=== PATIENT | female | born 1930 | race Caucasian/White ===

== ENCOUNTER 2017-05-13 04:59 | Emergency (ER) | payer MEDICARE ==
[2017-05-13 06:07] LABS: #Eosinphils 0.1 thou/uL (0.0-0.7); #Lymphocytes 0.8 thou/uL (1.20-3.40); #Monocytes 0.7 thou/uL (0.11-0.59); #Neutrophils 7.8 thou/uL (1.40-6.50); %Basophils 0.5 % (0.0-1.0); %Eosinophils 1.2 % (0.0-10.0); %Lymphocytes 8.3 % (21.0-51.0); %Monocytes 7.5 % (0.0-10.0); %Neutrophils 82.5 % (42.0-75.0); Mean Corpuscular HGB CONC 32.9 g/dL (32.0-36.0); Mean Corpuscular Hemoglobin 31.2 pg (27.0-31.0); Mean Corpuscular Volume 94.8 fl (81.0-99.0); Mean Platelet Volume 5.9 fL (7.4-10.4); Platelet Count 200 thou/uL (130-400); RBC Distribution Width 12.9 % (11.5-14.5); Red Blood Cell (RBC) Count 3.86 mill/uL (4.20-5.40); White Blood Cell (WBC) Count 9.4 thou/uL (4.8-10.8)
[2017-05-13 06:24] LABS: ALT (SGPT) 27 U/L (8-55); AST (SGOT) 34 U/L (5-34); Albumin 4.1 g/dL (3.4-4.8); Alkaline Phosphatase 73 U/L (40-150); Anion Gap 16 mmol/L (10-20); BUN (Urea Nitrogen) 30 mg/dL (9.8-20.1); Bilirubin, Total 0.8 mg/dL (0.2-1.2); Calc. Creatinine Clearance 0 mL/min (70-130); Calcium 8.6 mg/dL (7.8-10.44); Carbon Dioxide 28 mmol/L (23-31); Chloride 94 mmol/L (98-107); Estimated GFR-MDRD 67; Globulin 3.2 g/dL (2.4-3.5); Glucose 103 mg/dL (83-110); Lipase 80 U/L (8-78); Potassium 3.8 mmol/L (3.5-5.1); Protein, Total 7.3 g/dL (6.0-8.3); Sodium 134 mmol/L (136-145)
[2017-05-13 06:25] LABS: CKMB 3.5 ng/mL (0-6.6); Troponin I 0.012 ng/mL (< 0.028)
[2017-05-13 06:40] LABS: Bilirubin Negative (Negative); Blood, Urine Moderate (Negative); Clarity Clear (Clear); Glucose, Urine (Dipstick) Negative (Negative); Leukocyte Negative (Negative); Nitrite Negative (Negative); Protein, Urine (Dipstick) Negative (Neg-Trace); Urobilinogen 0.2 mg/dL (0.2-1.0)
[2017-05-13] MEDS ORDERED: Ibuprofen 200 MG TAB ONE (06:40)
[2017-05-13 06:42] LABS: Specific Gravity, Urine 1.011 (1.002-1.036)
[2017-05-13 06:44] LABS: Squamous Epithelial None Seen HPF (0-3); WBC/HPF 0-3 HPF (0-3)
[2017-05-13 06:45] LABS: Bacteria/HPF None Seen HPF (None Seen)
[2017-05-13 06:56] LABS: Alcohol Less than 10 mg/dL (Less than 10); Salicylate Less than 8.0 mg/dL (15.0-30.0)
--- NOTE | 2017-05-13 08:20 | CT ---
PRELIMINARY REPORT/[facility]/EMERGENCY AFTER HOURS PROCEDURE: EXAM: CT Abdomen and Pelvis Without Intravenous Contrast EXAM DATE/TIME: Exam ordered 05/13/2017 5:57 AM CLINICAL HISTORY: 86 years old, female; Pain; Abdominal pain; Acute; Patient HX: Rt. Sided pain TECHNIQUE: Axial computed tomography images of the abdomen and pelvis without intravenous contrast. COMPARISON: No relevant prior studies available. FINDINGS: Lower thorax: The visualized portions of the lung bases are normal. ABDOMEN: Liver: There are no focal liver lesions present. Gallbladder and bile ducts: A calcified gallstone is present. No ductal dilation. Pancreas: There is a nonspecific 3.8 cm cyst overlying the pancreatic head. The pancreas is otherwise atrophied. No ductal dilation. Spleen: The spleen is normal. Adrenals: Normal. No mass. 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 The course of the RIGHT ureter is not well-v isualized. Stomach and bowel: Normal. No obstruction. No mucosal thickening. Appendix: No findings to suggest acute appendicitis. PELVIS: Bladder: The urinary bladder is poorly visualized due to streak artifact. No stones. Reproductive: See above. ABDOMEN and PELVIS: Intraperitoneal space: Normal. No free air. No significant fluid collection. Bones/joints: Patient is post LEFT hip arthroplasty. Multilevel lumbar spine degenerative changes are present. No acute fracture. No dislocation. Soft tissues: Normal. Vasculature: The vasculature demonstrates diffuse severe atherosclerotic calcification. No abdominal aortic aneurysm. Lymph nodes: Normal. No enlarged lymph nodes. IMPRESSION: 1. 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 The course of the RIGHT ureter is not well-visualized. 2. There is a nonspecific 3.8 cm cyst overlying the pancreatic head. The pancreas is otherwise atroph ied. Followup or further evaluation for this finding at local radiologist's discretion. Thank you for allowing us to participate in the care of your patient. Dictated and Authenticated by: Domenico Dooley MD 05/13/2017 6:49 AM Central Time ([place] & [place]) FINAL REPORT ABDOMEN CT WITHOUT CONTRAST PELVIS CT WITHOUT CONTRAST: COMPARISON: 02/09/2014 HISTORY: Right-sided abdominal pain. TECHNIQUE: An abdomen and pelvis CT is performed without IV or oral contrast. Coronal reformatted images are cruz bmitted for interpretation. FINDINGS: This report is in agreement with the preliminary report by [facility]. Limited evaluation due to lack of IV contrast. There is right-sided obstructive uropathy. The etiol ogy of this obstructive uropathy is difficult to appreciate. IVP may be beneficial. 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 There is CT evidence of cholelithiasis without evidence of cholecystitis. There is a stable well circumscribed hypodensity, anterior to the aortic bifurcati on with an attenuation coefficient of -1.3 Hounsfield units. This lesion measures 3.3 cm and has not significantly changed in size. A cystic lesion is favored. POS: [facility]
== END 2017-05-13 07:27 | disposition home or self-care (01) ==
LOC: BURERS 04:59
DX: N13.2 Hydronephrosis with renal and ureteral calculous obstruction (principal); I48.91 Unspecified atrial fibrillation; Z79.899 Other long term (current) drug therapy
CPT/HCPCS: 74176; 80053; 80307; 81003; 81015; 82553; 83690; 84484; 85025; 93005

== ENCOUNTER 2018-06-19 12:49 | Outpatient (CLI) | payer MEDICARE ==
--- NOTE | 2018-06-19 21:39 | RAD ---
CHEST TWO VIEWS: 06/19/2018 COMPARISON: Study from [facility] from 01/10/2012. FINDINGS: The heart is mildly enlarged. The right heart border is quite prominent in size. This is due, at le ast in part, to the patient being turned slightly to the right. [id number], it is so prominent t hat followup would be prudent with either a repeat PA chest film or, if there were cardiac issues, an echocardiogram. There is calcific change in the aortic arch. There are no congestive changes prese nt. The lungs are hyperexpanded. There is no lobar infiltrate. There is definite blunting of the l eft costophrenic angle. There was minimal blunting there before. I cannot rule out a very small lef t pleural effusion. IMPRESSION: 1. Mild cardiomegaly with prominent right heart border. This may just be due to the position of the patient, but at least a follow-up posterior-anterior film should be obtained. Further studies might be needed. 2. Arteriosclerosis. 3. Hyperexpanded lungs with possible small left pleural effusion. POS: HOME
--- NOTE | 2018-06-19 21:40 | RAD ---
RIGHT KNEE TWO VIEWS: 06/19/2018 FINDINGS: No acute fracture is seen. There is a small amount of joint fluid but not a lot. The major finding on the study is profound arthritis change with narrowing of the joint space medially and laterally, a s well as large osteophytes. The patellofemoral joint is involved. Some faint arterial calcificatio ns are noted. IMPRESSION: Prominent arthritic changes. POS: HOME
== END 2018-06-19 12:50 | disposition home or self-care (01) ==
LOC: BURRAD 12:49
PROVIDERS: ATTEND Internal Medicine
DX: M25.561 Pain in right knee (principal); R06.00 Dyspnea, unspecified; M17.11 Unilateral primary osteoarthritis, right knee; I51.7 Cardiomegaly; R91.8 Other nonspecific abnormal finding of lung field; I70.0 Atherosclerosis of aorta
CPT/HCPCS: 71046